=== PATIENT | female | born 1955 | race Two or more races ===

== ENCOUNTER 2019-04-04 15:14 | Emergency (ER) | payer OTHER ==
[~2019-04-04] VITALS: Ht 162.6 cm; Wt 66.8 kg
[~2019-04-04 15:14] MED LIST: LIDOcaine 1% 30ml preserv. free vial ONE
[2019-04-04 15:54] VITALS: BP 144/108
[2019-04-04] MEDS ORDERED: TETanus/Pertussis (Acell)/Diphther VAC/PF (Tdap-Adult) 0.5ml syringe IMVAC ONE (17:25)
[2019-04-04] MEDS ORDERED: HYDR-3965 PO (17:41)
== END 2019-04-04 17:51 | disposition home or self-care (01) ==
LOC: ER 15:15
DX: S61.512A Laceration without foreign body of left wrist, initial encounter (principal); Z79.899 Other long term (current) drug therapy; W26.0XXA Contact with knife, initial encounter; Y93.89 Activity, other specified; Y92.89 Other specified places as the place of occurrence of the external cause; Y99.8 Other external cause status
CPT/HCPCS: 12002; 90471; 90715; 99283; J2001

== ENCOUNTER 2019-04-15 13:48 | Emergency (ER) | payer OTHER ==
[~2019-04-15] VITALS: Ht 162.6 cm; Wt 67.5 kg
[2019-04-15 13:57] VITALS: BP 125/68
== END 2019-04-15 14:21 | disposition home or self-care (01) ==
LOC: ER 13:49
DX: S61.212D Laceration without foreign body of right middle finger without damage to nail, subsequent encounter (principal); W26.0XXD Contact with knife, subsequent encounter
CPT/HCPCS: 99281